=== PATIENT | female | born 1935 | race Caucasian/White ===

== ENCOUNTER 2021-01-23 05:27 | Day surgery (SDC) | payer BC, MEDICARE, OTHER ==
[2021-01-22 11:37] VITALS: BMI 31.4
[2021-01-23 07:34] LABS: INR 1.05 (0.83-1.09); PROTHROMBIN TIME (PATIENT) 12.9 SEC (9.7-13.0)
[2021-01-23 07:42] LABS: BASO % 1.2 % (0-2.0); EOS % 21.4 % (0-4.5); HEMATOCRIT 42.4 % (32.4-45.2); HEMOGLOBIN 13.6 GM/dL (10.7-15.3); LYMPH % 11.8 % (8-40); MCH 27.4 pg (25.7-33.7); MEAN CELL VOLUME 85.6 fl (80-96); MEAN PLT VOLUME 7.8 fl (7.5-11.1); MONO % 7.1 % (3.8-10.2); NEUT % 58.5 % (42.8-82.8); PLATELET COUNT 419 K/MM3 (134-434); RBC 4.95 M/mm3 (3.60-5.2); RDW 15.8 % (11.6-15.6); WHITE BLOOD COUNT 21.5 K/mm3 (4.0-10.0)
[2021-01-23 10:03] LABS: ANISOCYTOSIS 0; MACROCYTOSIS 0; PLATELET ESTIMATE INCREASED
[2021-01-23 12:27] LABS: BF WBC & OTHER NUCLEATED CELLS 1235 /mm3
[2021-01-23 12:55] VITALS: BP 122/52; PULSE 75; TEMP 97.8
[2021-01-23 13:46] LABS: BODY FLUID MACROPHAGES 48 %; BODYL FLD EOSINOPHIL 4 %
[2021-01-24 17:07] LABS: BODY FLUID ALBUMIN 2.7 g/dL (Not Estab.)
== END 2021-01-23 13:00 | disposition home or self-care (01) ==
LOC: JRADIR 05:27
PROVIDERS: ATTEND Internal Medicine Hematology & Oncology
PROC: 0W9B3ZZ Drainage of Left Pleural Cavity, Percutaneous Approach (ICD-10-PCS; principal; 2021-01-23)
DX: J90 Pleural effusion, not elsewhere classified (principal); C34.90 Malignant neoplasm of unspecified part of unspecified bronchus or lung
CPT/HCPCS: 32555; 36415; 71045-TC-FY; 76942; 82042; 82150; 82465; 82945; 83615; 83986; 84157; 84478; 85025; 85610; 87070; 87075; 87102; 87116; 87205; 87206; 87210

== ENCOUNTER 2021-02-05 08:03 | Inpatient (IN) | payer OTHER, BC, MEDICARE ==
[2021-02-05 09:52] LABS: BASO % 0.7 % (0-2.0); EOS % 18.1 % (0-4.5); HEMATOCRIT 41.4 % (32.4-45.2); HEMOGLOBIN 13.4 GM/dL (10.7-15.3); MCH 26.6 pg (25.7-33.7); MCHC 32.3 g/dl (32.0-36.0); MEAN CELL VOLUME 82.5 fl (80-96); MEAN PLT VOLUME 7.1 fl (7.5-11.1); MONO % 5.5 % (3.8-10.2); NEUT % 69.7 % (42.8-82.8); PLATELET COUNT 518 10^3/uL (134-434); RBC 5.02 M/mm3 (3.60-5.2); WHITE BLOOD COUNT 27.1 K/mm3 (4.0-10.0)
[2021-02-05 09:53] LABS: INR 1.1 (0.83-1.09); PROTHROMBIN TIME (PATIENT) 13.5 SEC (9.7-13.0)
[2021-02-05 09:56] LABS: ACTIVATED PTT 32.3 SECONDS (25.2-36.5)
[2021-02-05 10:04] LABS: CHLORIDE 106 mmol/L (98-107); SODIUM 141 mmol/L (136-145)
[2021-02-05 10:06] LABS: CALCIUM 10.6 mg/dL (8.5-10.1)
[2021-02-05 10:07] LABS: ALBUMIN 2.8 g/dl (3.4-5.0); ANION GAP 6 MMOL/L (8-16); BLOOD UREA NITROGEN 22.9 mg/dL (7-18); CO2 29 mmol/L (21-32); GLUCOSE,RANDOM 143 mg/dL (74-106)
[2021-02-05 10:10] LABS: CREATININE 0.8 mg/dL (0.55-1.3); SGOT/AST 13 U/L (15-37); SGPT/ALT < 6 U/L (13-61)
[2021-02-05 10:11] LABS: BILIRUBIN,TOTAL 0.4 mg/dL (0.2-1); TOT PROT 6.3 g/dl (6.4-8.2)
[2021-02-05 10:13] LABS: ALK PHOS 95 U/L (45-117)
[2021-02-05 10:34] LABS: ANISOCYTOSIS 0; HELMET CELLS 0; HOWELL-JOLLY BODIES 0; MACROCYTOSIS 0; OVALOCYTE 0; PLATELET ESTIMATE INCREASED; ROULEAU 0; SICKELED CELLS 0; TARGET CELLS 0; TEAR DROP CELLS 0; TOXIC GRANULATION 0
[2021-02-05] MEDS ORDERED: VANCOMYCIN 1 GM in D5W (PRE-DOCKED) 1,000 MG/250 ML IVPB ONE (10:57)
[2021-02-05] MEDS ORDERED: VANCOMYCIN 1 GRAM (PRE-DOCKED) 1,000 MG/250 ML BAG IVPB ONE (11:17)
[2021-02-05] MEDS ORDERED: ACETAMINOPHEN 1000 MG/100 ML VIAL (NON FORMULARY) IVPB ONE (17:22)
[2021-02-05] MEDS ORDERED: ACETAMINOPHEN 325 MG TABLET (FP) ONE (17:36)
[2021-02-05] MEDS ORDERED: ALBUTEROL SO4 2.5/IPRATROPIUM 0.5 INH SOL 3 ML VIAL.NEB. NEB SCH (18:00)
[2021-02-05] MEDS ORDERED: ACETAMINOPHEN 500 MG TABLET (FP) PO ONE (18:01)
[2021-02-05 21:59] LABS: BASO % 1.2 % (0-2.0); EOS % 19.6 % (0-4.5); HEMATOCRIT 40.1 % (32.4-45.2); HEMOGLOBIN 12.9 GM/dL (10.7-15.3); LYMPH % 7.2 % (8-40); MCH 26.4 pg (25.7-33.7); MCHC 32.1 g/dl (32.0-36.0); MEAN CELL VOLUME 82.2 fl (80-96); MEAN PLT VOLUME 7.3 fl (7.5-11.1); MONO % 5.1 % (3.8-10.2); NEUT % 66.9 % (42.8-82.8); PLATELET COUNT 497 10^3/uL (134-434); RBC 4.88 M/mm3 (3.60-5.2); RDW 16.3 % (11.6-15.6); WHITE BLOOD COUNT 24.9 K/mm3 (4.0-10.0)
[2021-02-05] MEDS: rOPINIRole HCL 0.5 MG TABLET PO SCH ×2 (22:15→22:39)
[2021-02-05 22:22] LABS: CALCIUM 9.8 mg/dL (8.5-10.1)
[2021-02-05 22:26] LABS: CREATININE 0.8 mg/dL (0.55-1.3)
[2021-02-05] MEDS: FLUTICASONE/SALMETEROL 100 MCG/50 MCG DISKUS IH SCH (22:38)
[2021-02-05] MEDS ORDERED: INSULIN (LEVEMIR) 100 UNITS/ML UNITS SQ ONE (23:04)
[2021-02-05] MEDS: INSULIN (LEVEMIR) 100 UNITS/ML UNITS SQ SCH (23:05)
[2021-02-05] MEDS ORDERED: ALBUTEROL SO4 2.5/IPRATROPIUM 0.5 INH SOL 3 ML VIAL.NEB. NEB ONE (23:08)
[2021-02-05] MEDS ORDERED: MONTELUKAST NA 10 MG TABLET ONE (23:08)
[2021-02-05] MEDS: MONTELUKAST NA 10 MG TABLET PO SCH (23:13)
[2021-02-05] MEDS: ALBUTEROL SO4 2.5/IPRATROPIUM 0.5 INH SOL 3 ML VIAL.NEB. NEB SCH (23:13)
[2021-02-05 23:30] LABS: ANISOCYTOSIS 0; MACROCYTOSIS 0; PLATELET ESTIMATE NORMAL
[2021-02-06 02:02] VITALS: BMI 31.1
[2021-02-06] MEDS: ACETAMINOPHEN 1000 MG/100 ML VIAL (NON FORMULARY) IVPB ONE ×2 (05:16→05:41)
[2021-02-06] MEDS: LEVOTHYROXINE NA 75 MCG TABLET (FP) PO SCH (05:59)
[2021-02-06] MEDS: INSULIN SLIDING SCALE (NOVOLOG) 1 VIAL SQ SCH ×2 (06:02→16:38)
[2021-02-06] MEDS: ALBUTEROL SO4 2.5/IPRATROPIUM 0.5 INH SOL 3 ML VIAL.NEB. NEB SCH ×4 (07:42→20:48)
[2021-02-06] MEDS ORDERED: PT OWN MED DRAWER 7, Y5N ONE ×4 (08:21→18:00)
[2021-02-06] MEDS: PANTOPRAZOLE 40 MG TABLET PO SCH (09:46)
[2021-02-06] MEDS: VALSARTAN 80 MG TABLET PO SCH (09:46)
[2021-02-06] MEDS: rOPINIRole HCL 0.5 MG TABLET PO SCH ×4 (09:46→23:07)
[2021-02-06] MEDS: FLUTICASONE/SALMETEROL 100 MCG/50 MCG DISKUS IH SCH ×2 (09:49→23:07)
[2021-02-06] MEDS ORDERED: metoPROLOL SUCCINATE 25 MG TAB.SR.24H (FP) PO SCH (10:00)
[2021-02-06] MEDS ORDERED: HYDROCHLOROTHIAZIDE 12.5 MG CAPSULE (FP) PO SCH (10:00)
[2021-02-06] MEDS: ACETAMINOPHEN 325 MG TABLET (FP) PO PRN ×2 (11:12→18:03)
[2021-02-06 15:16] LABS: BF WBC & OTHER NUCLEATED CELLS 727 /mm3
[2021-02-06 15:37] LABS: BODY FLUID MACROPHAGES 20 %; BODY FLUID MONOCYTE 5 %; BODYL FLD EOSINOPHIL 27 %
[2021-02-06] MEDS: MORPHINE SULFATE 2 MG/ML VIAL IVPUSH PRN (15:37)
[2021-02-06] MEDS ORDERED: INSULIN (NOVOLOG) ASPART 100 UNITS/ML 10ML VIAL ONE (20:28)
[2021-02-06] MEDS: INSULIN (LEVEMIR) 100 UNITS/ML UNITS SQ SCH (21:02)
[2021-02-06] MEDS: MONTELUKAST NA 10 MG TABLET PO SCH (21:04)
[2021-02-06] MEDS ORDERED: LORazepam 2 MG/ML SDV VIAL IVPUSH ONE (22:47)
[2021-02-07] MEDS: MORPHINE SULFATE 2 MG/ML VIAL IVPUSH PRN (05:40)
[2021-02-07] MEDS: INSULIN SLIDING SCALE (NOVOLOG) 1 VIAL SQ SCH ×2 (05:59→17:19)
[2021-02-07] MEDS: LEVOTHYROXINE NA 75 MCG TABLET (FP) PO SCH (05:59)
[2021-02-07] MEDS ORDERED: INSULIN (NOVOLOG) ASPART 100 UNITS/ML 10ML VIAL ONE ×2 (06:15→17:07)
[2021-02-07] MEDS: ALBUTEROL SO4 2.5/IPRATROPIUM 0.5 INH SOL 3 ML VIAL.NEB. NEB SCH ×4 (07:30→20:35)
[2021-02-07] MEDS: VALSARTAN 80 MG TABLET PO SCH (09:36)
[2021-02-07] MEDS: ACETAMINOPHEN 325 MG TABLET (FP) PO PRN ×3 (09:36→23:29)
[2021-02-07] MEDS: FLUTICASONE/SALMETEROL 100 MCG/50 MCG DISKUS IH SCH ×2 (09:36→21:19)
[2021-02-07] MEDS: rOPINIRole HCL 0.5 MG TABLET PO SCH ×4 (09:38→21:19)
[2021-02-07] MEDS: PANTOPRAZOLE 40 MG TABLET PO SCH (09:38)
[2021-02-07] MEDS: MONTELUKAST NA 10 MG TABLET PO SCH (21:18)
[2021-02-07] MEDS: INSULIN (LEVEMIR) 100 UNITS/ML UNITS SQ SCH (21:22)
[2021-02-08] MEDS: ACETAMINOPHEN 325 MG TABLET (FP) PO PRN ×3 (05:29→18:14)
[2021-02-08] MEDS: LEVOTHYROXINE NA 75 MCG TABLET (FP) PO SCH (05:59)
[2021-02-08] MEDS: INSULIN SLIDING SCALE (NOVOLOG) 1 VIAL SQ SCH ×2 (05:59→18:24)
[2021-02-08] MEDS: ALBUTEROL SO4 2.5/IPRATROPIUM 0.5 INH SOL 3 ML VIAL.NEB. NEB SCH ×4 (07:41→20:45)
[2021-02-08] MEDS ORDERED: INSULIN (NOVOLOG) ASPART 100 UNITS/ML 10ML VIAL ONE ×2 (07:45→21:34)
[2021-02-08] MEDS ORDERED: PT OWN MED DRAWER 7, Y5N ONE ×2 (10:36→21:06)
[2021-02-08] MEDS: rOPINIRole HCL 0.5 MG TABLET PO SCH ×4 (10:38→22:07)
[2021-02-08] MEDS: FLUTICASONE/SALMETEROL 100 MCG/50 MCG DISKUS IH SCH ×2 (10:38→22:08)
[2021-02-08] MEDS: VALSARTAN 80 MG TABLET PO SCH (10:38)
[2021-02-08] MEDS: PANTOPRAZOLE 40 MG TABLET PO SCH (10:38)
[2021-02-08 14:08] LABS: BODY FLUID ALBUMIN 2.2 g/dL (Not Estab.)
[2021-02-08] MEDS: ENOXAPARIN NA (PORCINE) 40 MG/0.4 ML DISP.SYRIN SQ SCH (18:12)
[2021-02-08] MEDS: MONTELUKAST NA 10 MG TABLET PO SCH (21:27)
[2021-02-08] MEDS: INSULIN (LEVEMIR) 100 UNITS/ML UNITS SQ SCH (21:38)
[2021-02-09] MEDS: ACETAMINOPHEN 325 MG TABLET (FP) PO PRN ×2 (06:13→12:05)
[2021-02-09] MEDS: INSULIN SLIDING SCALE (NOVOLOG) 1 VIAL SQ SCH ×2 (06:19→16:47)
[2021-02-09] MEDS: LEVOTHYROXINE NA 75 MCG TABLET (FP) PO SCH (06:39)
[2021-02-09 08:09] LABS: BASO % 0.7 % (0-2.0); EOS % 19.3 % (0-4.5); HEMATOCRIT 39.7 % (32.4-45.2); HEMOGLOBIN 12.5 GM/dL (10.7-15.3); LYMPH % 8.4 % (8-40); MCHC 31.5 g/dl (32.0-36.0); MEAN CELL VOLUME 82.4 fl (80-96); MEAN PLT VOLUME 8.1 fl (7.5-11.1); MONO % 8.9 % (3.8-10.2); NEUT % 62.7 % (42.8-82.8); PLATELET COUNT 447 10^3/uL (134-434); RBC 4.81 M/mm3 (3.60-5.2); RDW 16.5 % (11.6-15.6); WHITE BLOOD COUNT 18.9 K/mm3 (4.0-10.0)
[2021-02-09] MEDS: ALBUTEROL SO4 2.5/IPRATROPIUM 0.5 INH SOL 3 ML VIAL.NEB. NEB SCH ×4 (08:25→21:04)
[2021-02-09 08:28] LABS: CHLORIDE 107 mmol/L (98-107); SODIUM 142 mmol/L (136-145)
[2021-02-09 08:32] LABS: ANION GAP 7 MMOL/L (8-16); BLOOD UREA NITROGEN 24.9 mg/dL (7-18); CALCIUM 9.7 mg/dL (8.5-10.1); CO2 27 mmol/L (21-32)
[2021-02-09 08:33] LABS: GLUCOSE,RANDOM 130 mg/dL (74-106)
[2021-02-09 08:36] LABS: CREATININE 0.8 mg/dL (0.55-1.3); SGOT/AST 32 U/L (15-37); SGPT/ALT < 6 U/L (13-61)
[2021-02-09 08:37] LABS: BILIRUBIN,TOTAL 0.5 mg/dL (0.2-1); TOT PROT 5.3 g/dl (6.4-8.2)
[2021-02-09 08:47] LABS: ALBUMIN 1.9 g/dl (3.4-5.0); ALK PHOS 134 U/L (45-117)
[2021-02-09] MEDS ORDERED: PT OWN MED DRAWER 7, Y5N ONE (10:02)
[2021-02-09] MEDS: ENOXAPARIN NA (PORCINE) 40 MG/0.4 ML DISP.SYRIN SQ SCH (10:29)
[2021-02-09] MEDS: PANTOPRAZOLE 40 MG TABLET PO SCH (10:29)
[2021-02-09] MEDS: rOPINIRole HCL 0.5 MG TABLET PO SCH ×4 (10:29→21:52)
[2021-02-09] MEDS: VALSARTAN 80 MG TABLET PO SCH (10:29)
[2021-02-09] MEDS: FLUTICASONE/SALMETEROL 100 MCG/50 MCG DISKUS IH SCH ×2 (10:36→21:51)
[2021-02-09] MEDS: traMADol HCL 50 MG TABLET PO PRN ×2 (13:23→23:14)
[2021-02-09] MEDS: POLYETHYLENE GLYCOL 3350 119 GM BTL PO SCH (15:22)
[2021-02-09] MEDS: MONTELUKAST NA 10 MG TABLET PO SCH (21:51)
[2021-02-09] MEDS: INSULIN (LEVEMIR) 100 UNITS/ML UNITS SQ SCH (21:54)
[2021-02-10] MEDS: LEVOTHYROXINE NA 75 MCG TABLET (FP) PO SCH (06:06)
[2021-02-10] MEDS: INSULIN SLIDING SCALE (NOVOLOG) 1 VIAL SQ SCH ×2 (06:06→16:06)
[2021-02-10] MEDS: ALBUTEROL SO4 2.5/IPRATROPIUM 0.5 INH SOL 3 ML VIAL.NEB. NEB SCH ×3 (07:25→15:15)
[2021-02-10] MEDS ORDERED: PT OWN MED DRAWER 7, Y5N ONE (10:11)
[2021-02-10] MEDS: VALSARTAN 80 MG TABLET PO SCH (10:20)
[2021-02-10] MEDS: POLYETHYLENE GLYCOL 3350 119 GM BTL PO SCH (10:20)
[2021-02-10] MEDS: ENOXAPARIN NA (PORCINE) 40 MG/0.4 ML DISP.SYRIN SQ SCH (10:20)
[2021-02-10] MEDS: FLUTICASONE/SALMETEROL 100 MCG/50 MCG DISKUS IH SCH ×2 (10:20→21:30)
[2021-02-10] MEDS: PANTOPRAZOLE 40 MG TABLET PO SCH (10:20)
[2021-02-10] MEDS: rOPINIRole HCL 0.25 MG TABLET PO SCH ×4 (10:21→21:11)
[2021-02-10] MEDS: traMADol HCL 50 MG TABLET PO PRN (17:25)
[2021-02-10] MEDS: ACETAMINOPHEN 325 MG TABLET (FP) PO PRN (21:11)
[2021-02-10] MEDS: MONTELUKAST NA 10 MG TABLET PO SCH (21:11)
[2021-02-10] MEDS: INSULIN (LEVEMIR) 100 UNITS/ML UNITS SQ SCH (21:12)
[2021-02-11] MEDS: traMADol HCL 50 MG TABLET PO PRN ×2 (04:53→18:19)
[2021-02-11] MEDS: INSULIN SLIDING SCALE (NOVOLOG) 1 VIAL SQ SCH ×2 (06:04→17:20)
[2021-02-11] MEDS: LEVOTHYROXINE NA 75 MCG TABLET (FP) PO SCH (06:06)
[2021-02-11] MEDS ORDERED: PT OWN MED DRAWER 7, Y5N ONE ×4 (09:19→21:25)
[2021-02-11] MEDS: ACETAMINOPHEN 325 MG TABLET (FP) PO PRN ×2 (09:30→21:29)
[2021-02-11] MEDS: ENOXAPARIN NA (PORCINE) 40 MG/0.4 ML DISP.SYRIN SQ SCH (09:30)
[2021-02-11] MEDS: PANTOPRAZOLE 40 MG TABLET PO SCH (09:31)
[2021-02-11] MEDS: rOPINIRole HCL 0.25 MG TABLET PO SCH ×4 (09:31→21:28)
[2021-02-11] MEDS: VALSARTAN 80 MG TABLET PO SCH (09:31)
[2021-02-11] MEDS: FLUTICASONE/SALMETEROL 100 MCG/50 MCG DISKUS IH SCH ×2 (09:32→21:28)
[2021-02-11] MEDS: POLYETHYLENE GLYCOL 3350 119 GM BTL PO SCH (09:32)
[2021-02-11] MEDS: MONTELUKAST NA 10 MG TABLET PO SCH (21:28)
[2021-02-11] MEDS: INSULIN (LEVEMIR) 100 UNITS/ML UNITS SQ SCH (21:29)
[2021-02-12] MEDS: MELATONIN 5 MG TABLETS PO PRN ×2 (01:30→21:36)
[2021-02-12] MEDS: traMADol HCL 50 MG TABLET PO PRN ×2 (02:28→23:01)
[2021-02-12] MEDS: LEVOTHYROXINE NA 75 MCG TABLET (FP) PO SCH (06:03)
[2021-02-12] MEDS: INSULIN SLIDING SCALE (NOVOLOG) 1 VIAL SQ SCH ×2 (06:20→16:52)
[2021-02-12 07:34] LABS: BASO % 1.1 % (0-2.0); EOS % 22.7 % (0-4.5); HEMATOCRIT 39.2 % (32.4-45.2); HEMOGLOBIN 12.6 GM/dL (10.7-15.3); LYMPH % 11.6 % (8-40); MCH 26.3 pg (25.7-33.7); MCHC 32.1 g/dl (32.0-36.0); MEAN CELL VOLUME 81.9 fl (80-96); MEAN PLT VOLUME 7.3 fl (7.5-11.1); MONO % 7.2 % (3.8-10.2); NEUT % 57.4 % (42.8-82.8); PLATELET COUNT 494 10^3/uL (134-434); RBC 4.79 M/mm3 (3.60-5.2); RDW 16.2 % (11.6-15.6); WHITE BLOOD COUNT 18.9 K/mm3 (4.0-10.0)
[2021-02-12 08:20] LABS: CALCIUM 9.6 mg/dL (8.5-10.1)
[2021-02-12 08:21] LABS: ALBUMIN 1.9 g/dl (3.4-5.0); BILIRUBIN,TOTAL 0.4 mg/dL (0.2-1); CREATININE 0.7 mg/dL (0.55-1.3)
[2021-02-12 08:22] LABS: TOT PROT 5.4 g/dl (6.4-8.2)
[2021-02-12 09:17] LABS: ANISOCYTOSIS 0; MACROCYTOSIS 0; PLATELET ESTIMATE INCREASED
[2021-02-12] MEDS: PANTOPRAZOLE 40 MG TABLET PO SCH (09:46)
[2021-02-12] MEDS: VALSARTAN 80 MG TABLET PO SCH (09:46)
[2021-02-12] MEDS: ACETAMINOPHEN 325 MG TABLET (FP) PO PRN ×2 (09:46→18:17)
[2021-02-12] MEDS: ENOXAPARIN NA (PORCINE) 40 MG/0.4 ML DISP.SYRIN SQ SCH (09:47)
[2021-02-12] MEDS: FLUTICASONE/SALMETEROL 100 MCG/50 MCG DISKUS IH SCH ×2 (09:47→21:35)
[2021-02-12] MEDS: POLYETHYLENE GLYCOL 3350 119 GM BTL PO SCH (09:47)
[2021-02-12] MEDS: rOPINIRole HCL 0.25 MG TABLET PO SCH ×4 (09:47→21:35)
[2021-02-12] MEDS ORDERED: PT OWN MED DRAWER 7, Y5N ONE ×2 (14:37→17:59)
[2021-02-12] MEDS: MONTELUKAST NA 10 MG TABLET PO SCH (21:35)
[2021-02-12] MEDS: INSULIN (LEVEMIR) 100 UNITS/ML UNITS SQ SCH (21:35)
[2021-02-13] MEDS: ACETAMINOPHEN 325 MG TABLET (FP) PO PRN ×3 (01:26→21:38)
[2021-02-13] MEDS: LEVOTHYROXINE NA 75 MCG TABLET (FP) PO SCH (06:00)
[2021-02-13] MEDS: INSULIN SLIDING SCALE (NOVOLOG) 1 VIAL SQ SCH ×2 (06:40→17:14)
[2021-02-13] MEDS ORDERED: PT OWN MED DRAWER 7, Y5N ONE ×3 (09:35→16:57)
[2021-02-13] MEDS: rOPINIRole HCL 0.25 MG TABLET PO SCH ×3 (09:41→17:15)
[2021-02-13] MEDS: PANTOPRAZOLE 40 MG TABLET PO SCH (09:42)
[2021-02-13] MEDS: POLYETHYLENE GLYCOL 3350 119 GM BTL PO SCH (09:44)
[2021-02-13] MEDS: FLUTICASONE/SALMETEROL 100 MCG/50 MCG DISKUS IH SCH ×2 (10:05→21:41)
[2021-02-13] MEDS: VALSARTAN 80 MG TABLET PO SCH (11:57)
[2021-02-13] MEDS: traMADol HCL 50 MG TABLET PO PRN (12:12)
[2021-02-13] MEDS ORDERED: traMADol HCL 50 MG TABLET PO ONE (19:07)
[2021-02-13] MEDS: SENNOSIDES 8.6MG TABLET (FP) PO PRN (19:18)
[2021-02-13] MEDS: INSULIN (LEVEMIR) 100 UNITS/ML UNITS SQ SCH (21:36)
[2021-02-13] MEDS: MONTELUKAST NA 10 MG TABLET PO SCH (21:39)
[2021-02-13] MEDS: MELATONIN 5 MG TABLETS PO PRN (21:40)
[2021-02-13] MEDS: rOPINIRole HCL 0.5 MG TABLET PO SCH (22:01)
[2021-02-14] MEDS: LEVOTHYROXINE NA 75 MCG TABLET (FP) PO SCH (06:12)
[2021-02-14] MEDS: INSULIN SLIDING SCALE (NOVOLOG) 1 VIAL SQ SCH ×2 (06:13→18:20)
[2021-02-14] MEDS: traMADol HCL 50 MG TABLET PO PRN ×2 (09:44→19:55)
[2021-02-14] MEDS ORDERED: PT OWN MED DRAWER 7, Y5N ONE (10:12)
[2021-02-14] MEDS: VALSARTAN 80 MG TABLET PO SCH (10:25)
[2021-02-14] MEDS: POLYETHYLENE GLYCOL 3350 119 GM BTL PO SCH (10:25)
[2021-02-14] MEDS: rOPINIRole HCL 0.5 MG TABLET PO SCH ×4 (10:25→21:35)
[2021-02-14] MEDS: FLUTICASONE/SALMETEROL 100 MCG/50 MCG DISKUS IH SCH ×2 (10:25→21:34)
[2021-02-14] MEDS: PANTOPRAZOLE 40 MG TABLET PO SCH (10:25)
[2021-02-14] MEDS: INSULIN (LEVEMIR) 100 UNITS/ML UNITS SQ SCH (21:32)
[2021-02-14] MEDS: SENNOSIDES 8.6MG TABLET (FP) PO PRN (21:34)
[2021-02-14] MEDS: MONTELUKAST NA 10 MG TABLET PO SCH (21:35)
[2021-02-14] MEDS: MELATONIN 5 MG TABLETS PO PRN (21:35)
[2021-02-15] MEDS: LEVOTHYROXINE NA 75 MCG TABLET (FP) PO SCH (06:02)
[2021-02-15] MEDS: INSULIN SLIDING SCALE (NOVOLOG) 1 VIAL SQ SCH ×2 (06:03→17:18)
[2021-02-15] MEDS ORDERED: PT OWN MED DRAWER 7, Y5N ONE ×2 (11:01→21:30)
[2021-02-15] MEDS: traMADol HCL 50 MG TABLET PO PRN ×2 (11:08→18:51)
[2021-02-15] MEDS: rOPINIRole HCL 0.5 MG TABLET PO SCH ×4 (11:09→21:36)
[2021-02-15] MEDS: PANTOPRAZOLE 40 MG TABLET PO SCH (11:09)
[2021-02-15] MEDS: FLUTICASONE/SALMETEROL 100 MCG/50 MCG DISKUS IH SCH ×2 (11:10→21:37)
[2021-02-15] MEDS: VALSARTAN 80 MG TABLET PO SCH (11:16)
[2021-02-15] MEDS ORDERED: POLYETHYLENE GLYCOL (HEALTHYLAX) 3350 17 GM PACKET PO SCH (11:17)
[2021-02-15] MEDS: POLYETHYLENE GLYCOL 3350 119 GM BTL PO SCH (11:18)
[2021-02-15] MEDS: POLYETHYLENE GLYCOL (HEALTHYLAX) 3350 17 GM PACKET PO SCH (11:25)
[2021-02-15] MEDS ORDERED: LACTULOSE 20 GM/30 ML UDC (FOR ORAL USE ONLY) PO PRN (11:34)
[2021-02-15] MEDS: MONTELUKAST NA 10 MG TABLET PO SCH (21:36)
[2021-02-15] MEDS: ACETAMINOPHEN 325 MG TABLET (FP) PO PRN (21:36)
[2021-02-15] MEDS: INSULIN (LEVEMIR) 100 UNITS/ML UNITS SQ SCH (21:37)
[2021-02-15] MEDS: MELATONIN 5 MG TABLETS PO PRN (21:38)
[2021-02-16] MEDS: INSULIN SLIDING SCALE (NOVOLOG) 1 VIAL SQ SCH ×2 (06:01→17:18)
[2021-02-16] MEDS: LEVOTHYROXINE NA 75 MCG TABLET (FP) PO SCH (06:01)
[2021-02-16] MEDS: ACETAMINOPHEN 325 MG TABLET (FP) PO PRN (06:01)
[2021-02-16] MEDS: PANTOPRAZOLE 40 MG TABLET PO SCH (10:17)
[2021-02-16] MEDS: VALSARTAN 80 MG TABLET PO SCH (10:17)
[2021-02-16] MEDS: FLUTICASONE/SALMETEROL 100 MCG/50 MCG DISKUS IH SCH ×2 (10:19→22:12)
[2021-02-16] MEDS ORDERED: PT OWN MED DRAWER 7, Y5N ONE ×2 (10:20→21:16)
[2021-02-16] MEDS: rOPINIRole HCL 0.5 MG TABLET PO SCH ×4 (10:22→22:09)
[2021-02-16] MEDS ORDERED: traMADol HCL 50 MG TABLET PO PRN (10:35)
[2021-02-16] MEDS: POLYETHYLENE GLYCOL (HEALTHYLAX) 3350 17 GM PACKET PO SCH ×3 (17:59→22:10)
[2021-02-16] MEDS: MONTELUKAST NA 10 MG TABLET PO SCH (22:09)
[2021-02-16] MEDS: MELATONIN 5 MG TABLETS PO PRN (22:09)
[2021-02-16] MEDS: INSULIN (LEVEMIR) 100 UNITS/ML UNITS SQ SCH (22:10)
[2021-02-17] MEDS: INSULIN SLIDING SCALE (NOVOLOG) 1 VIAL SQ SCH ×2 (06:05→16:48)
[2021-02-17] MEDS: LEVOTHYROXINE NA 75 MCG TABLET (FP) PO SCH (06:06)
[2021-02-17] MEDS: VALSARTAN 80 MG TABLET PO SCH (10:40)
[2021-02-17] MEDS: FLUTICASONE/SALMETEROL 100 MCG/50 MCG DISKUS IH SCH ×2 (10:40→22:03)
[2021-02-17] MEDS: POLYETHYLENE GLYCOL (HEALTHYLAX) 3350 17 GM PACKET PO SCH ×2 (10:42→22:00)
[2021-02-17] MEDS: PANTOPRAZOLE 40 MG TABLET PO SCH (10:42)
[2021-02-17] MEDS: rOPINIRole HCL 0.5 MG TABLET PO SCH ×3 (10:43→22:01)
[2021-02-17] MEDS: oxyCODONE HCL 5 MG TABLET PO PRN ×2 (12:00→19:57)
[2021-02-17] MEDS: ACETAMINOPHEN 325 MG TABLET (FP) PO PRN (19:57)
[2021-02-17] MEDS ORDERED: PT OWN MED DRAWER 7, Y5N ONE (21:28)
[2021-02-17] MEDS: MONTELUKAST NA 10 MG TABLET PO SCH (22:01)
[2021-02-17] MEDS: INSULIN (LEVEMIR) 100 UNITS/ML UNITS SQ SCH (22:02)
[2021-02-18] MEDS: oxyCODONE HCL 5 MG TABLET PO PRN ×3 (05:54→21:19)
[2021-02-18] MEDS: ACETAMINOPHEN 325 MG TABLET (FP) PO PRN ×2 (05:55→15:13)
[2021-02-18] MEDS: LEVOTHYROXINE NA 75 MCG TABLET (FP) PO SCH (06:00)
[2021-02-18] MEDS: INSULIN SLIDING SCALE (NOVOLOG) 1 VIAL SQ SCH ×2 (06:00→16:10)
[2021-02-18] MEDS: rOPINIRole HCL 0.5 MG TABLET PO SCH ×4 (09:31→22:59)
[2021-02-18] MEDS: PANTOPRAZOLE 40 MG TABLET PO SCH (09:31)
[2021-02-18] MEDS: VALSARTAN 80 MG TABLET PO SCH (09:31)
[2021-02-18] MEDS: FLUTICASONE/SALMETEROL 100 MCG/50 MCG DISKUS IH SCH ×2 (09:34→21:41)
[2021-02-18] MEDS: POLYETHYLENE GLYCOL (HEALTHYLAX) 3350 17 GM PACKET PO SCH ×3 (11:39→21:24)
[2021-02-18 15:09] LABS: BASO % 0.5 % (0-2.0); EOS % 18.2 % (0-4.5); HEMATOCRIT 38.2 % (32.4-45.2); LYMPH % 7.3 % (8-40); MCH 25.7 pg (25.7-33.7); MCHC 31.4 g/dl (32.0-36.0); MEAN CELL VOLUME 81.9 fl (80-96); MEAN PLT VOLUME 7.4 fl (7.5-11.1); MONO % 5.4 % (3.8-10.2); NEUT % 68.6 % (42.8-82.8); PLATELET COUNT 484 10^3/uL (134-434); RBC 4.67 M/mm3 (3.60-5.2); RDW 16.7 % (11.6-15.6); WHITE BLOOD COUNT 24.5 K/mm3 (4.0-10.0)
[2021-02-18 15:23] LABS: CHLORIDE 103 mmol/L (98-107); SODIUM 141 mmol/L (136-145)
[2021-02-18 15:25] LABS: CALCIUM 10.5 mg/dL (8.5-10.1)
[2021-02-18 15:26] LABS: ANION GAP 7 MMOL/L (8-16); BLOOD UREA NITROGEN 20.2 mg/dL (7-18); CO2 31 mmol/L (21-32); GLUCOSE,RANDOM 162 mg/dL (74-106)
[2021-02-18 15:29] LABS: CREATININE 0.9 mg/dL (0.55-1.3); SGOT/AST 11 U/L (15-37); SGPT/ALT < 6 U/L (13-61)
[2021-02-18 15:30] LABS: BILIRUBIN,TOTAL 0.4 mg/dL (0.2-1)
[2021-02-18 15:32] LABS: ALBUMIN 2.4 g/dl (3.4-5.0); ALK PHOS 146 U/L (45-117)
[2021-02-18 18:14] LABS: ANISOCYTOSIS 0; MACROCYTOSIS 0; PLATELET ESTIMATE NORMAL
[2021-02-18] MEDS: MONTELUKAST NA 10 MG TABLET PO SCH (21:20)
[2021-02-18] MEDS: INSULIN (LEVEMIR) 100 UNITS/ML UNITS SQ SCH (22:22)
[2021-02-19] MEDS ORDERED: predniSONE 20 MG TABLET (UD) PO ONE (04:00)
[2021-02-19] MEDS: LEVOTHYROXINE NA 75 MCG TABLET (FP) PO SCH (06:07)
[2021-02-19] MEDS: INSULIN SLIDING SCALE (NOVOLOG) 1 VIAL SQ SCH ×2 (06:10→16:47)
[2021-02-19] MEDS ORDERED: PT OWN MED DRAWER 7, Y5N ONE ×6 (09:47→18:00)
[2021-02-19] MEDS: PANTOPRAZOLE 40 MG TABLET PO SCH (09:50)
[2021-02-19] MEDS: oxyCODONE HCL 5 MG TABLET PO PRN (09:51)
[2021-02-19] MEDS: VALSARTAN 80 MG TABLET PO SCH (09:51)
[2021-02-19] MEDS: rOPINIRole HCL 0.5 MG TABLET PO SCH ×5 (09:52→21:58)
[2021-02-19] MEDS: POLYETHYLENE GLYCOL (HEALTHYLAX) 3350 17 GM PACKET PO SCH ×2 (09:53→21:12)
[2021-02-19] MEDS: FLUTICASONE/SALMETEROL 100 MCG/50 MCG DISKUS IH SCH ×2 (09:53→21:13)
[2021-02-19] MEDS ORDERED: diphenhydrAMINE HCL 25 MG CAPSULE (FP) PO PRN (10:00)
[2021-02-19] MEDS ORDERED: predniSONE 20 MG TABLET (UD) PO SCH (10:00)
[2021-02-19] MEDS ORDERED: traMADol HCL 50 MG TABLET PO PRN (14:03)
[2021-02-19] MEDS: INSULIN (LEVEMIR) 100 UNITS/ML UNITS SQ SCH (21:09)
[2021-02-19] MEDS: MELATONIN 5 MG TABLETS PO PRN (21:13)
[2021-02-19] MEDS: MONTELUKAST NA 10 MG TABLET PO SCH (21:13)
[2021-02-19] MEDS: ACETAMINOPHEN 325 MG TABLET (FP) PO PRN (23:52)
[2021-02-20] MEDS ORDERED: traMADol HCL 50 MG TABLET PO ONE (01:48)
[2021-02-20] MEDS ORDERED: INSULIN (NOVOLOG) ASPART 100 UNITS/ML 10ML VIAL ONE (05:38)
[2021-02-20] MEDS: LEVOTHYROXINE NA 75 MCG TABLET (FP) PO SCH (06:14)
[2021-02-20] MEDS: ACETAMINOPHEN 325 MG TABLET (FP) PO PRN (06:14)
[2021-02-20] MEDS: INSULIN SLIDING SCALE (NOVOLOG) 1 VIAL SQ SCH ×2 (06:20→17:31)
[2021-02-20] MEDS: FLUTICASONE/SALMETEROL 100 MCG/50 MCG DISKUS IH SCH ×2 (09:23→22:00)
[2021-02-20] MEDS: VALSARTAN 80 MG TABLET PO SCH (09:24)
[2021-02-20] MEDS: PANTOPRAZOLE 40 MG TABLET PO SCH (09:24)
[2021-02-20] MEDS: POLYETHYLENE GLYCOL (HEALTHYLAX) 3350 17 GM PACKET PO SCH ×3 (09:24→23:26)
[2021-02-20] MEDS: rOPINIRole HCL 0.5 MG TABLET PO SCH ×4 (09:25→22:03)
[2021-02-20] MEDS ORDERED: diazePAM 5 MG TABLET PO SCH (12:42)
[2021-02-20] MEDS: MONTELUKAST NA 10 MG TABLET PO SCH (22:00)
[2021-02-20] MEDS: INSULIN (LEVEMIR) 100 UNITS/ML UNITS SQ SCH (22:13)
[2021-02-21] MEDS: oxyCODONE HCL 5 MG TABLET PO PRN ×2 (03:01→10:31)
[2021-02-21] MEDS: LEVOTHYROXINE NA 75 MCG TABLET (FP) PO SCH (06:31)
[2021-02-21] MEDS: INSULIN SLIDING SCALE (NOVOLOG) 1 VIAL SQ SCH ×2 (06:33→16:09)
[2021-02-21 07:23] LABS: BASO % 1.2 % (0-2.0); HEMATOCRIT 37.7 % (32.4-45.2); HEMOGLOBIN 11.7 GM/dL (10.7-15.3); LYMPH % 10.8 % (8-40); MCH 25.6 pg (25.7-33.7); MCHC 31.2 g/dl (32.0-36.0); MEAN CELL VOLUME 82.2 fl (80-96); MEAN PLT VOLUME 7.5 fl (7.5-11.1); MONO % 6.3 % (3.8-10.2); NEUT % 58.7 % (42.8-82.8); PLATELET COUNT 448 10^3/uL (134-434); RBC 4.58 M/mm3 (3.60-5.2); RDW 16.6 % (11.6-15.6); WHITE BLOOD COUNT 24.9 K/mm3 (4.0-10.0)
[2021-02-21 07:40] LABS: CHLORIDE 102 mmol/L (98-107); SODIUM 140 mmol/L (136-145)
[2021-02-21 07:43] LABS: ALBUMIN 2.2 g/dl (3.4-5.0); ANION GAP 4 MMOL/L (8-16); CALCIUM 10.3 mg/dL (8.5-10.1); CO2 35 mmol/L (21-32); GLUCOSE,RANDOM 88 mg/dL (74-106)
[2021-02-21 07:46] LABS: SGOT/AST 6 U/L (15-37); SGPT/ALT < 6 U/L (13-61)
[2021-02-21 07:47] LABS: CREATININE 0.7 mg/dL (0.55-1.3)
[2021-02-21 07:48] LABS: BILIRUBIN,TOTAL 0.7 mg/dL (0.2-1); TOT PROT 5.4 g/dl (6.4-8.2)
[2021-02-21 07:49] LABS: ALK PHOS 118 U/L (45-117)
[2021-02-21 09:19] LABS: ANISOCYTOSIS 2+; MACROCYTOSIS 0; PLATELET ESTIMATE NORMAL
[2021-02-21] MEDS: FLUTICASONE/SALMETEROL 100 MCG/50 MCG DISKUS IH SCH ×2 (09:24→21:05)
[2021-02-21] MEDS: PANTOPRAZOLE 40 MG TABLET PO SCH (09:24)
[2021-02-21] MEDS: VALSARTAN 80 MG TABLET PO SCH (09:24)
[2021-02-21] MEDS: POLYETHYLENE GLYCOL (HEALTHYLAX) 3350 17 GM PACKET PO SCH ×2 (09:25→21:05)
[2021-02-21] MEDS: rOPINIRole HCL 0.5 MG TABLET PO SCH ×4 (09:25→21:04)
[2021-02-21] MEDS: ASPIRIN 81 MG CHEWABLE TABLETS PO SCH (11:50)
[2021-02-21] MEDS ORDERED: INSULIN (NOVOLOG) ASPART 100 UNITS/ML 10ML VIAL ONE (16:47)
[2021-02-21] MEDS ORDERED: PT OWN MED DRAWER 7, Y5N ONE (20:38)
[2021-02-21] MEDS: MONTELUKAST NA 10 MG TABLET PO SCH (21:04)
[2021-02-21] MEDS: INSULIN (LEVEMIR) 100 UNITS/ML UNITS SQ SCH (21:04)
[2021-02-21] MEDS: MELATONIN 5 MG TABLETS PO PRN (21:04)
[2021-02-21] MEDS: ACETAMINOPHEN 325 MG TABLET (FP) PO PRN (21:05)
[2021-02-21] MEDS ORDERED: ATORVASTATIN CA 80 MG TABLET (FP) PO SCH (22:00)
[2021-02-22] MEDS: LEVOTHYROXINE NA 75 MCG TABLET (FP) PO SCH (06:19)
[2021-02-22] MEDS: INSULIN SLIDING SCALE (NOVOLOG) 1 VIAL SQ SCH ×2 (06:22→16:57)
[2021-02-22] MEDS ORDERED: PT OWN MED DRAWER 7, Y5N ONE (09:03)
[2021-02-22] MEDS: PANTOPRAZOLE 40 MG TABLET PO SCH (09:07)
[2021-02-22] MEDS: ASPIRIN 81 MG CHEWABLE TABLETS PO SCH (09:07)
[2021-02-22] MEDS: FLUTICASONE/SALMETEROL 100 MCG/50 MCG DISKUS IH SCH (09:07)
[2021-02-22] MEDS: POLYETHYLENE GLYCOL (HEALTHYLAX) 3350 17 GM PACKET PO SCH (09:07)
[2021-02-22] MEDS: VALSARTAN 80 MG TABLET PO SCH (09:07)
[2021-02-22] MEDS: rOPINIRole HCL 0.5 MG TABLET PO SCH ×3 (09:08→17:02)
[2021-02-22] MEDS: ACETAMINOPHEN 325 MG TABLET (FP) PO PRN ×2 (09:08→17:03)
[2021-02-22 12:59] VITALS: BP 122/56; PULSE 79; TEMP 97.6
[2021-02-22] MEDS: oxyCODONE HCL 5 MG TABLET PO PRN (13:18)
== END 2021-02-22 18:35 | DRG 180 ==
LOC: JER 08:03 → JERBED 10:39 → J7W 02-06 01:00
PROVIDERS: ADMIT Internal Medicine; ATTEND Internal Medicine
PROC: 0W9B30Z Drainage of Left Pleural Cavity with Drainage Device, Percutaneous Approach (ICD-10-PCS; 2021-02-06)
PROC: 0BBJ3ZX Excision of Left Lower Lung Lobe, Percutaneous Approach, Diagnostic (ICD-10-PCS; principal; 2021-02-13)
PROC: 0WPBX0Z Removal of Drainage Device from Left Pleural Cavity, External Approach (ICD-10-PCS; 2021-02-20)
DX: C34.90 Malignant neoplasm of unspecified part of unspecified bronchus or lung (principal); G93.41 Metabolic encephalopathy; I63.9 Cerebral infarction, unspecified; J90 Pleural effusion, not elsewhere classified; C79.51 Secondary malignant neoplasm of bone; I10 Essential (primary) hypertension; E11.9 Type 2 diabetes mellitus without complications; E78.5 Hyperlipidemia, unspecified; Z79.4 Long term (current) use of insulin; K59.00 Constipation, unspecified; E03.9 Hypothyroidism, unspecified; G20 Parkinson's disease; D72.10 Eosinophilia, unspecified; G62.9 Polyneuropathy, unspecified; G30.9 Alzheimer's disease, unspecified; F02.80 Dementia in other diseases classified elsewhere, unspecified severity, without behavioral disturbance, psychotic disturbance, mood disturbance, and anxiety
CPT/HCPCS: 32408; 32557; 36415; 70450-TC; 70553-TC; 71045-TC-FY; 71046-TC-FY; 71250-TC; 72131-TC; 72192-TC; 73502-TC-LT-FY; 73700-TC-RT; 76098-TC-FY; 76942-TC; 80048; 80053; 82042; 82150; 82465; 82607; 82945; 82962; 83036; 83615; 83986; 84157; 84443; 84478; 85025; 85610; 85730; 86682; 86850; 86900; 86901; 87040; 87070; 87075; 87102; 87116; 87177; 87205; 87206; 87209; 87210; 87899; 88108; 88305-TC; 93005; 93010; 94640; 97116-GP; 97161-GP; 99285-25; A9579; C1729; C1769; C9803; J0131; U0003; U0005

== ENCOUNTER 2021-03-15 20:40 | Inpatient (IN) | payer OTHER, BC ==
[2021-03-16 00:36] LABS: BASO % 0.4 % (0-2.0); EOS % 27.9 % (0-4.5); HEMOGLOBIN 13.6 GM/dL (10.7-15.3); LYMPH % 5.5 % (8-40); MCH 25.8 pg (25.7-33.7); MCHC 31.5 g/dl (32.0-36.0); MEAN CELL VOLUME 81.9 fl (80-96); MEAN PLT VOLUME 7.4 fl (7.5-11.1); MONO % 4.3 % (3.8-10.2); NEUT % 61.9 % (42.8-82.8); PLATELET COUNT 406 10^3/uL (134-434); RBC 5.25 M/mm3 (3.60-5.2); RDW 18.6 % (11.6-15.6)
[2021-03-16 00:40] LABS: WHITE BLOOD COUNT 39.9 K/mm3 (4.0-10.0)
[2021-03-16 00:46] LABS: INR 1.1 (0.83-1.09); PROTHROMBIN TIME (PATIENT) 13.3 SEC (9.7-13.0)
[2021-03-16 00:49] LABS: ACTIVATED PTT 29.5 SECONDS (25.2-36.5)
[2021-03-16 00:54] LABS: CHLORIDE 104 mmol/L (98-107); SODIUM 140 mmol/L (136-145)
[2021-03-16 00:56] LABS: ALBUMIN 2.6 g/dl (3.4-5.0); ANION GAP 8 MMOL/L (8-16); BLOOD UREA NITROGEN 24.5 mg/dL (7-18); CALCIUM 12.2 mg/dL (8.5-10.1); CO2 28 mmol/L (21-32)
[2021-03-16 00:57] LABS: GLUCOSE,RANDOM 100 mg/dL (74-106)
[2021-03-16 00:59] LABS: SGOT/AST 24 U/L (15-37); SGPT/ALT < 6 U/L (13-61)
[2021-03-16 01:00] LABS: CREATININE 0.8 mg/dL (0.55-1.3)
[2021-03-16 01:01] LABS: BILIRUBIN,TOTAL 0.4 mg/dL (0.2-1); TOT PROT 6.9 g/dl (6.4-8.2)
[2021-03-16 01:02] LABS: ALK PHOS 108 U/L (45-117)
[2021-03-16 02:02] LABS: EPI CELLS 14 /uL (0-25.1); HYALINE CASTS 2 /uL (0-3.1); URINE APPEARANCE CLEAR; URINE BACTERIA 14 /uL (0-1359); URINE BILIRUBIN NEGATIVE (NEGATIVE); URINE COLOR YELLOW; URINE GLUCOSE (UA) NEGATIVE (NEGATIVE); URINE KETONE TRACE (NEGATIVE); URINE LEUK ESTERASE 2+ (NEGATIVE); URINE NITRITE NEGATIVE (NEGATIVE); URINE PROTEIN NEGATIVE (NEGATIVE); URINE RBC 11 /uL (0-23.9); URINE UROBILINOGEN 0.2 mg/dL (0.2-1.0); URINE WBC 112 /uL (0-25.8)
[2021-03-16] MEDS ORDERED: SODIUM CHLORIDE 0.9% 500 ML INFUS.BAG IV ONE (03:47)
[2021-03-16] MEDS ORDERED: LACTULOSE 20 GM/30 ML UDC (FOR ORAL USE ONLY) PO PRN (06:25)
[2021-03-16] MEDS: INSULIN SLIDING SCALE (NOVOLOG) 1 VIAL SQ SCH ×4 (06:31→22:58)
[2021-03-16] MEDS ORDERED: LEVOTHYROXINE NA 25 MCG TABLET (FP) ONE (07:20)
[2021-03-16] MEDS ORDERED: CARBIDOPA/LEVODOPA 25/100 TABLET (FP) ONE (07:20)
[2021-03-16] MEDS ORDERED: ALBUTEROL SO4 2.5/IPRATROPIUM 0.5 INH SOL 3 ML VIAL.NEB. NEB ONE (07:20)
[2021-03-16] MEDS: LEVOTHYROXINE NA 75 MCG TABLET (FP) PO SCH (07:30)
[2021-03-16] MEDS ORDERED: oxyCODONE HCL 5 MG TABLET ONE (07:33)
[2021-03-16] MEDS ORDERED: ACETAMINOPHEN 325 MG TABLET (FP) ONE (07:33)
[2021-03-16] MEDS: oxyCODONE HCL 5 MG TABLET PO PRN (07:39)
[2021-03-16] MEDS: ALBUTEROL SO4 2.5/IPRATROPIUM 0.5 INH SOL 3 ML VIAL.NEB. NEB SCH ×2 (07:40→20:05)
[2021-03-16] MEDS ORDERED: SODIUM CHLORIDE 1,000 ML IV SCH (08:30)
[2021-03-16] MEDS ORDERED: POLYETHYLENE GLYCOL (HEALTHYLAX) 3350 17 GM PACKET ONE (09:03)
[2021-03-16] MEDS ORDERED: VALSARTAN 80 MG TABLET ONE (09:03)
[2021-03-16] MEDS ORDERED: PANTOPRAZOLE 40 MG TABLET ONE (09:03)
[2021-03-16] MEDS ORDERED: ASPIRIN 81 MG CHEWABLE TABLETS ONE (09:03)
[2021-03-16] MEDS ORDERED: metoPROLOL SUCCINATE 25 MG TAB.SR.24H (FP) ONE (09:03)
[2021-03-16] MEDS ORDERED: ENOXAPARIN NA (PORCINE) 40 MG/0.4 ML DISP.SYRIN SQ ONE (09:04)
[2021-03-16] MEDS ORDERED: FERROUS SO4 325 MG TABLET (FP) ONE (09:04)
[2021-03-16] MEDS: ENOXAPARIN NA (PORCINE) 40 MG/0.4 ML DISP.SYRIN SQ SCH (09:28)
[2021-03-16] MEDS: metoPROLOL SUCCINATE 25 MG TAB.SR.24H (FP) PO SCH (09:28)
[2021-03-16] MEDS: VALSARTAN 80 MG TABLET PO SCH (09:28)
[2021-03-16] MEDS: PANTOPRAZOLE 40 MG TABLET PO SCH (09:28)
[2021-03-16] MEDS: FERROUS SO4 325 MG TABLET (FP) PO SCH (09:28)
[2021-03-16] MEDS: MULTIVITAMINS THER W-MINERALS COMBO TABLET (FP) PO SCH (09:28)
[2021-03-16] MEDS: HYDROCHLOROTHIAZIDE 12.5 MG CAPSULE (FP) PO SCH (09:28)
[2021-03-16] MEDS: ASPIRIN 81 MG CHEWABLE TABLETS PO SCH (09:28)
[2021-03-16] MEDS: rOPINIRole HCL 0.5 MG TABLET PO SCH ×4 (09:28→22:59)
[2021-03-16] MEDS: FLUTICASONE/SALMETEROL 100 MCG/50 MCG DISKUS IH SCH ×2 (09:30→22:59)
[2021-03-16] MEDS ORDERED: HYDROCHLOROTHIAZIDE PO SCH (10:00)
[2021-03-16] MEDS ORDERED: POLYETHYLENE GLYCOL (HEALTHYLAX) 3350 17 GM PACKET PO SCH (10:00)
[2021-03-16] MEDS ORDERED: VALSARTAN PO SCH (10:00)
[2021-03-16] MEDS ORDERED: DEXTROSE 5%-WATER - 50 ML IVPB ONE ×2 (12:36→17:07)
[2021-03-16] MEDS ORDERED: PIPERACILLIN/TAZOBACTAM 3.375 GM VIAL IVPB ONE ×2 (12:36→17:06)
[2021-03-16] MEDS: PIPERACILLIN/TAZOB 3.375 GM 3.375 GM in DEXTROSE 5%-WATER - 50 ML IVPB SCH ×2 (12:54→17:33)
[2021-03-16] MEDS ORDERED: PT OWN MED DRAWER 7, Y5N ONE ×2 (13:50→17:39)
[2021-03-16] MEDS: VANCOMYCIN 1 GRAM (PRE-DOCKED) 1,000 MG/250 ML BAG IVPB SCH (13:54)
[2021-03-16] MEDS: SODIUM CHLORIDE 1,000 ML IV SCH (13:55)
[2021-03-16 14:46] VITALS: BMI 27.6
[2021-03-16] MEDS: MONTELUKAST NA 10 MG TABLET PO SCH (22:58)
[2021-03-16] MEDS: POLYETHYLENE GLYCOL (HEALTHYLAX) 3350 17 GM PACKET PO SCH (22:59)
[2021-03-16] MEDS: ACETAMINOPHEN 325 MG TABLET (FP) PO PRN (23:03)
[2021-03-16] MEDS: MELATONIN 5 MG TABLETS PO PRN (23:03)
[2021-03-17] MEDS ORDERED: PIPERACILLIN/TAZOBACTAM 3.375 GM VIAL IVPB ONE ×2 (04:11→08:30)
[2021-03-17] MEDS ORDERED: DEXTROSE 5%-WATER - 50 ML IVPB ONE ×2 (04:12→08:30)
[2021-03-17] MEDS: PIPERACILLIN/TAZOB 3.375 GM 3.375 GM in DEXTROSE 5%-WATER - 50 ML IVPB SCH ×2 (04:15→10:47)
[2021-03-17] MEDS ORDERED: ACETAMINOPHEN 1000 MG/100 ML VIAL (NON FORMULARY) IVPB ONE (04:44)
[2021-03-17] MEDS: INSULIN SLIDING SCALE (NOVOLOG) 1 VIAL SQ SCH ×4 (06:04→22:03)
[2021-03-17] MEDS: LEVOTHYROXINE NA 75 MCG TABLET (FP) PO SCH (06:05)
[2021-03-17 07:27] LABS: BASO % 0.9 % (0-2.0); CHLORIDE 106 mmol/L (98-107); EOS % 32.1 % (0-4.5); HEMATOCRIT 36.1 % (32.4-45.2); HEMOGLOBIN 11.6 GM/dL (10.7-15.3); LYMPH % 3.7 % (8-40); MCH 26.5 pg (25.7-33.7); MCHC 32.2 g/dl (32.0-36.0); MEAN CELL VOLUME 82.4 fl (80-96); MEAN PLT VOLUME 7.8 fl (7.5-11.1); MONO % 3.6 % (3.8-10.2); NEUT % 59.7 % (42.8-82.8); PLATELET COUNT 342 10^3/uL (134-434); RBC 4.38 M/mm3 (3.60-5.2); RDW 18.5 % (11.6-15.6); SODIUM 141 mmol/L (136-145)
[2021-03-17 07:34] LABS: WHITE BLOOD COUNT 31.3 K/mm3 (4.0-10.0)
[2021-03-17 07:36] LABS: CALCIUM 11.2 mg/dL (8.5-10.1)
[2021-03-17 07:37] LABS: ANION GAP 8 MMOL/L (8-16); CO2 27 mmol/L (21-32); GLUCOSE,RANDOM 99 mg/dL (74-106)
[2021-03-17 07:40] LABS: CREATININE 0.7 mg/dL (0.55-1.3); SGOT/AST 13 U/L (15-37); SGPT/ALT < 6 U/L (13-61)
[2021-03-17 07:41] LABS: BILIRUBIN,TOTAL 0.5 mg/dL (0.2-1); TOT PROT 5.2 g/dl (6.4-8.2)
[2021-03-17] MEDS: ALBUTEROL SO4 2.5/IPRATROPIUM 0.5 INH SOL 3 ML VIAL.NEB. NEB SCH ×5 (07:41→20:12)
[2021-03-17 07:43] LABS: ALK PHOS 85 U/L (45-117)
[2021-03-17 07:52] LABS: ALBUMIN 1.9 g/dl (3.4-5.0)
[2021-03-17 09:27] LABS: ANISOCYTOSIS 0; HELMET CELLS 0; HOWELL-JOLLY BODIES 0; MACROCYTOSIS 0; OVALOCYTE 0; PLATELET ESTIMATE NORMAL; ROULEAU 0; SICKELED CELLS 0; TARGET CELLS 0; TEAR DROP CELLS 0; TOXIC GRANULATION 0
[2021-03-17] MEDS: VALSARTAN 80 MG TABLET PO SCH (10:00)
[2021-03-17] MEDS: PANTOPRAZOLE 40 MG TABLET PO SCH (10:00)
[2021-03-17] MEDS ORDERED: POLYETHYLENE GLYCOL (HEALTHYLAX) 3350 17 GM PACKET PO SCH (10:00)
[2021-03-17] MEDS: HYDROCHLOROTHIAZIDE 12.5 MG CAPSULE (FP) PO SCH (10:00)
[2021-03-17] MEDS: ASPIRIN 81 MG CHEWABLE TABLETS PO SCH (10:00)
[2021-03-17] MEDS: metoPROLOL SUCCINATE 25 MG TAB.SR.24H (FP) PO SCH (10:00)
[2021-03-17] MEDS: FERROUS SO4 325 MG TABLET (FP) PO SCH (10:00)
[2021-03-17] MEDS: MULTIVITAMINS THER W-MINERALS COMBO TABLET (FP) PO SCH (10:00)
[2021-03-17] MEDS ORDERED: LORazepam 2 MG/ML SDV VIAL IVPUSH PRN (11:07)
[2021-03-17] MEDS: FLUTICASONE/SALMETEROL 100 MCG/50 MCG DISKUS IH SCH ×2 (11:37→21:51)
[2021-03-17] MEDS: rOPINIRole HCL 0.5 MG TABLET PO SCH ×4 (11:37→21:52)
[2021-03-17] MEDS: POLYETHYLENE GLYCOL (HEALTHYLAX) 3350 17 GM PACKET PO SCH ×2 (11:38→21:53)
[2021-03-17] MEDS: ENOXAPARIN NA (PORCINE) 40 MG/0.4 ML DISP.SYRIN SQ SCH (12:07)
[2021-03-17] MEDS: SODIUM CHLORIDE 1,000 ML IV SCH ×3 (12:49→20:59)
[2021-03-17] MEDS: VANCOMYCIN 1 GRAM (PRE-DOCKED) 1,000 MG/250 ML BAG IVPB SCH (13:33)
[2021-03-17] MEDS: oxyCODONE HCL 5 MG TABLET PO PRN (15:52)
[2021-03-17] MEDS ORDERED: ACETAMINOPHEN 1000 MG/100 ML VIAL (NON FORMULARY) IVPB PRN (16:31)
[2021-03-17] MEDS ORDERED: INSULIN (NOVOLOG) ASPART 100 UNITS/ML 10ML VIAL ONE ×2 (17:29→18:02)
[2021-03-17] MEDS ORDERED: PT OWN MED DRAWER 7, Y5N ONE ×2 (18:03→21:44)
[2021-03-17] MEDS: MONTELUKAST NA 10 MG TABLET PO SCH (21:52)
[2021-03-18] MEDS: SODIUM CHLORIDE 1,000 ML IV SCH ×3 (02:15→12:35)
[2021-03-18] MEDS: LEVOTHYROXINE NA 75 MCG TABLET (FP) PO SCH (06:01)
[2021-03-18] MEDS: INSULIN SLIDING SCALE (NOVOLOG) 1 VIAL SQ SCH ×4 (06:01→21:02)
[2021-03-18] MEDS: ALBUTEROL SO4 2.5/IPRATROPIUM 0.5 INH SOL 3 ML VIAL.NEB. NEB SCH ×4 (07:26→20:37)
[2021-03-18] MEDS ORDERED: PANTOPRAZOLE SODIUM 40 MG VIAL IVPUSH SCH (10:00)
[2021-03-18] MEDS: MULTIVITAMINS THER W-MINERALS COMBO TABLET (FP) PO SCH (10:29)
[2021-03-18] MEDS: POLYETHYLENE GLYCOL (HEALTHYLAX) 3350 17 GM PACKET PO SCH ×2 (10:29→21:03)
[2021-03-18] MEDS: ASPIRIN 81 MG CHEWABLE TABLETS PO SCH (10:29)
[2021-03-18] MEDS: metoPROLOL SUCCINATE 25 MG TAB.SR.24H (FP) PO SCH (10:29)
[2021-03-18] MEDS: rOPINIRole HCL 0.5 MG TABLET PO SCH ×4 (10:29→21:02)
[2021-03-18] MEDS: ENOXAPARIN NA (PORCINE) 40 MG/0.4 ML DISP.SYRIN SQ SCH (10:29)
[2021-03-18] MEDS: VALSARTAN 80 MG TABLET PO SCH (10:29)
[2021-03-18] MEDS: FLUTICASONE/SALMETEROL 100 MCG/50 MCG DISKUS IH SCH ×2 (10:30→21:03)
[2021-03-18 13:29] LABS: BASO % 0.7 % (0-2.0); EOS % 30.1 % (0-4.5); HEMATOCRIT 32.9 % (32.4-45.2); HEMOGLOBIN 10.5 GM/dL (10.7-15.3); LYMPH % 5.5 % (8-40); MCHC 31.9 g/dl (32.0-36.0); MEAN CELL VOLUME 81.6 fl (80-96); MEAN PLT VOLUME 7.5 fl (7.5-11.1); NEUT % 58.7 % (42.8-82.8); PLATELET COUNT 343 10^3/uL (134-434); RBC 4.03 M/mm3 (3.60-5.2); RDW 18.6 % (11.6-15.6)
[2021-03-18] MEDS ORDERED: PT OWN MED DRAWER 7, Y5N ONE ×3 (13:38→20:05)
[2021-03-18 13:45] LABS: WHITE BLOOD COUNT 30.4 K/mm3 (4.0-10.0)
[2021-03-18 13:53] LABS: CHLORIDE 112 mmol/L (98-107); SODIUM 143 mmol/L (136-145)
[2021-03-18 13:54] LABS: ALBUMIN 1.6 g/dl (3.4-5.0)
[2021-03-18 13:55] LABS: ANION GAP 7 MMOL/L (8-16); BLOOD UREA NITROGEN 13.8 mg/dL (7-18); CALCIUM 10.1 mg/dL (8.5-10.1); CO2 23 mmol/L (21-32); GLUCOSE,RANDOM 135 mg/dL (74-106)
[2021-03-18 13:58] LABS: SGOT/AST 9 U/L (15-37); SGPT/ALT < 6 U/L (13-61)
[2021-03-18 13:59] LABS: BILIRUBIN,TOTAL 0.3 mg/dL (0.2-1); CREATININE 0.5 mg/dL (0.55-1.3)
[2021-03-18 14:00] LABS: TOT PROT 4.6 g/dl (6.4-8.2)
[2021-03-18 14:01] LABS: ALK PHOS 71 U/L (45-117)
[2021-03-18 14:53] LABS: ANISOCYTOSIS 1+; MACROCYTOSIS 0; PLATELET ESTIMATE NORMAL
[2021-03-18] MEDS: POTASSIUM CHLORIDE 10 MEQ in SODIUM CHLORIDE 0.45% 1,000 ML IVPB SCH ×2 (15:53→23:52)
[2021-03-18] MEDS: ACETAMINOPHEN 325 MG TABLET (FP) PO PRN (20:13)
[2021-03-18] MEDS: ALPRAZolam 0.25 MG TABLET PO PRN (20:13)
[2021-03-18] MEDS: MELATONIN 5 MG TABLETS PO PRN (20:56)
[2021-03-18] MEDS: MONTELUKAST NA 10 MG TABLET PO SCH (21:02)
[2021-03-19] MEDS ORDERED: MORPHINE SULFATE 2 MG/ML VIAL IVPUSH PRN ×2 (00:05→11:36)
[2021-03-19] MEDS: LEVOTHYROXINE NA 75 MCG TABLET (FP) PO SCH (06:04)
[2021-03-19] MEDS: INSULIN SLIDING SCALE (NOVOLOG) 1 VIAL SQ SCH ×4 (06:40→21:38)
[2021-03-19 07:30] LABS: BASO % 1.3 % (0-2.0); EOS % 30.6 % (0-4.5); HEMATOCRIT 33.5 % (32.4-45.2); HEMOGLOBIN 10.6 GM/dL (10.7-15.3); LYMPH % 4.3 % (8-40); MCH 26.2 pg (25.7-33.7); MCHC 31.8 g/dl (32.0-36.0); MEAN CELL VOLUME 82.3 fl (80-96); MEAN PLT VOLUME 7.8 fl (7.5-11.1); MONO % 5.7 % (3.8-10.2); NEUT % 58.1 % (42.8-82.8); PLATELET COUNT 363 10^3/uL (134-434); RBC 4.07 M/mm3 (3.60-5.2); RDW 18.6 % (11.6-15.6)
[2021-03-19 07:40] LABS: WHITE BLOOD COUNT 34.9 K/mm3 (4.0-10.0)
[2021-03-19 07:54] LABS: CHLORIDE 110 mmol/L (98-107); SODIUM 141 mmol/L (136-145)
[2021-03-19 08:02] LABS: ALBUMIN 1.7 g/dl (3.4-5.0)
[2021-03-19 08:03] LABS: ANION GAP 9 MMOL/L (8-16); BLOOD UREA NITROGEN 10.9 mg/dL (7-18); CALCIUM 10.1 mg/dL (8.5-10.1); CO2 22 mmol/L (21-32)
[2021-03-19 08:04] LABS: GLUCOSE,RANDOM 121 mg/dL (74-106)
[2021-03-19 08:06] LABS: SGPT/ALT < 6 U/L (13-61)
[2021-03-19 08:07] LABS: CREATININE 0.4 mg/dL (0.55-1.3); SGOT/AST 10 U/L (15-37)
[2021-03-19 08:08] LABS: BILIRUBIN,TOTAL 0.6 mg/dL (0.2-1); TOT PROT 4.7 g/dl (6.4-8.2)
[2021-03-19 08:09] LABS: ALK PHOS 77 U/L (45-117)
[2021-03-19] MEDS: ALBUTEROL SO4 2.5/IPRATROPIUM 0.5 INH SOL 3 ML VIAL.NEB. NEB SCH ×4 (08:20→19:40)
[2021-03-19 08:52] LABS: ANISOCYTOSIS 1+; MACROCYTOSIS 1+; PLATELET ESTIMATE NORMAL
[2021-03-19] MEDS: POTASSIUM CHLORIDE 10 MEQ in SODIUM CHLORIDE 0.45% 1,000 ML IVPB SCH ×3 (10:23→21:33)
[2021-03-19] MEDS: FLUTICASONE/SALMETEROL 100 MCG/50 MCG DISKUS IH SCH ×2 (10:24→21:34)
[2021-03-19] MEDS: POLYETHYLENE GLYCOL (HEALTHYLAX) 3350 17 GM PACKET PO SCH ×2 (10:24→21:34)
[2021-03-19] MEDS: ENOXAPARIN NA (PORCINE) 40 MG/0.4 ML DISP.SYRIN SQ SCH (10:24)
[2021-03-19] MEDS: ASPIRIN 81 MG CHEWABLE TABLETS PO SCH (10:25)
[2021-03-19] MEDS: metoPROLOL SUCCINATE 25 MG TAB.SR.24H (FP) PO SCH (10:25)
[2021-03-19] MEDS: ACETAMINOPHEN 325 MG TABLET (FP) PO PRN (10:25)
[2021-03-19] MEDS: MULTIVITAMINS THER W-MINERALS COMBO TABLET (FP) PO SCH (10:25)
[2021-03-19] MEDS: PANTOPRAZOLE 40 MG TABLET PO SCH (10:25)
[2021-03-19] MEDS: rOPINIRole HCL 0.5 MG TABLET PO SCH ×4 (10:25→21:39)
[2021-03-19] MEDS: VALSARTAN 80 MG TABLET PO SCH (10:25)
[2021-03-19] MEDS ORDERED: PT OWN MED DRAWER 7, Y5N ONE ×2 (13:33→18:43)
[2021-03-19] MEDS ORDERED: INSULIN (NOVOLOG) ASPART 100 UNITS/ML 10ML VIAL ONE (16:58)
[2021-03-19] MEDS: MONTELUKAST NA 10 MG TABLET PO SCH (21:39)
[2021-03-20] MEDS: POTASSIUM CHLORIDE 10 MEQ in SODIUM CHLORIDE 0.45% 1,000 ML IVPB SCH ×3 (06:14→21:46)
[2021-03-20] MEDS: INSULIN SLIDING SCALE (NOVOLOG) 1 VIAL SQ SCH ×4 (06:22→21:43)
[2021-03-20] MEDS: LEVOTHYROXINE NA 75 MCG TABLET (FP) PO SCH (06:56)
[2021-03-20] MEDS: ALBUTEROL SO4 2.5/IPRATROPIUM 0.5 INH SOL 3 ML VIAL.NEB. NEB SCH ×4 (07:46→20:21)
[2021-03-20] MEDS: ENOXAPARIN NA (PORCINE) 40 MG/0.4 ML DISP.SYRIN SQ SCH (10:28)
[2021-03-20] MEDS: POLYETHYLENE GLYCOL (HEALTHYLAX) 3350 17 GM PACKET PO SCH ×2 (10:28→21:28)
[2021-03-20] MEDS: VALSARTAN 80 MG TABLET PO SCH (10:28)
[2021-03-20] MEDS: MULTIVITAMINS THER W-MINERALS COMBO TABLET (FP) PO SCH (10:28)
[2021-03-20] MEDS: ASPIRIN 81 MG CHEWABLE TABLETS PO SCH (10:29)
[2021-03-20] MEDS: rOPINIRole HCL 0.5 MG TABLET PO SCH ×4 (10:29→21:29)
[2021-03-20] MEDS: FLUTICASONE/SALMETEROL 100 MCG/50 MCG DISKUS IH SCH ×2 (10:29→21:30)
[2021-03-20] MEDS: metoPROLOL SUCCINATE 25 MG TAB.SR.24H (FP) PO SCH (10:29)
[2021-03-20] MEDS: PANTOPRAZOLE 40 MG TABLET PO SCH (10:29)
[2021-03-20] MEDS ORDERED: PT OWN MED DRAWER 7, Y5N ONE (14:17)
[2021-03-20] MEDS: ALPRAZolam 0.25 MG TABLET PO PRN (15:14)
[2021-03-20] MEDS: ACETAMINOPHEN 325 MG TABLET (FP) PO PRN (21:28)
[2021-03-20] MEDS: MELATONIN 5 MG TABLETS PO PRN (21:29)
[2021-03-20] MEDS: MONTELUKAST NA 10 MG TABLET PO SCH (21:30)
[2021-03-21] MEDS: POTASSIUM CHLORIDE 10 MEQ in SODIUM CHLORIDE 0.45% 1,000 ML IVPB SCH ×3 (01:56→14:28)
[2021-03-21] MEDS: ALPRAZolam 0.25 MG TABLET PO PRN (03:34)
[2021-03-21] MEDS: LEVOTHYROXINE NA 75 MCG TABLET (FP) PO SCH (06:23)
[2021-03-21] MEDS: INSULIN SLIDING SCALE (NOVOLOG) 1 VIAL SQ SCH ×3 (06:28→17:05)
[2021-03-21] MEDS: ALBUTEROL SO4 2.5/IPRATROPIUM 0.5 INH SOL 3 ML VIAL.NEB. NEB SCH ×4 (07:23→20:10)
[2021-03-21 08:16] LABS: BASO % 0.8 % (0-2.0); EOS % 30.9 % (0-4.5); HEMATOCRIT 35.5 % (32.4-45.2); HEMOGLOBIN 11.4 GM/dL (10.7-15.3); LYMPH % 3.8 % (8-40); MCH 26.2 pg (25.7-33.7); MCHC 32.1 g/dl (32.0-36.0); MEAN CELL VOLUME 81.8 fl (80-96); MEAN PLT VOLUME 7.7 fl (7.5-11.1); MONO % 5.3 % (3.8-10.2); NEUT % 59.2 % (42.8-82.8); PLATELET COUNT 419 10^3/uL (134-434); RBC 4.34 M/mm3 (3.60-5.2); RDW 18.7 % (11.6-15.6)
[2021-03-21 08:17] LABS: WHITE BLOOD COUNT 38.1 K/mm3 (4.0-10.0)
[2021-03-21] MEDS: ASPIRIN 81 MG CHEWABLE TABLETS PO SCH (09:32)
[2021-03-21] MEDS: MULTIVITAMINS THER W-MINERALS COMBO TABLET (FP) PO SCH (09:32)
[2021-03-21] MEDS: PANTOPRAZOLE 40 MG TABLET PO SCH (09:32)
[2021-03-21] MEDS: metoPROLOL SUCCINATE 25 MG TAB.SR.24H (FP) PO SCH (09:32)
[2021-03-21] MEDS: POLYETHYLENE GLYCOL (HEALTHYLAX) 3350 17 GM PACKET PO SCH (09:32)
[2021-03-21] MEDS: VALSARTAN 80 MG TABLET PO SCH (09:32)
[2021-03-21] MEDS: FLUTICASONE/SALMETEROL 100 MCG/50 MCG DISKUS IH SCH (09:33)
[2021-03-21] MEDS: ENOXAPARIN NA (PORCINE) 40 MG/0.4 ML DISP.SYRIN SQ SCH (09:33)
[2021-03-21] MEDS: rOPINIRole HCL 0.5 MG TABLET PO SCH ×3 (09:35→17:04)
[2021-03-21 09:52] LABS: BLOOD UREA NITROGEN 9.1 mg/dL (7-18); CALCIUM 10.1 mg/dL (8.5-10.1); CREATININE 0.4 mg/dL (0.55-1.3)
[2021-03-21 10:49] LABS: ANISOCYTOSIS 1+; MACROCYTOSIS 0; OVALOCYTE 1+; PLATELET ESTIMATE NORMAL; TEAR DROP CELLS 1+
[2021-03-21] MEDS ORDERED: AMINO ACIDS/PROTEIN HYDROLYS 30 ML LIQUID.PKT PO SCH (11:00)
[2021-03-21 17:08] VITALS: BP 122/53; PULSE 87; TEMP 98.8
== END 2021-03-21 21:00 | disposition hospice, inpatient (51) | DRG 180 ==
LOC: JER 20:40 → JERBED 03-16 04:06 → J7W 03-16 09:56
PROVIDERS: ADMIT Internal Medicine; ATTEND Internal Medicine
DX: C34.90 Malignant neoplasm of unspecified part of unspecified bronchus or lung (principal); L89.153 Pressure ulcer of sacral region, stage 3; C79.9 Secondary malignant neoplasm of unspecified site; J90 Pleural effusion, not elsewhere classified; N39.0 Urinary tract infection, site not specified; I10 Essential (primary) hypertension; E78.5 Hyperlipidemia, unspecified; E11.9 Type 2 diabetes mellitus without complications; D64.9 Anemia, unspecified; E83.52 Hypercalcemia; J45.909 Unspecified asthma, uncomplicated; J44.9 Chronic obstructive pulmonary disease, unspecified; E03.9 Hypothyroidism, unspecified; M54.16 Radiculopathy, lumbar region; G20 Parkinson's disease; G30.9 Alzheimer's disease, unspecified; D72.829 Elevated white blood cell count, unspecified; K57.90 Diverticulosis of intestine, part unspecified, without perforation or abscess without bleeding; E86.0 Dehydration; K21.9 Gastro-esophageal reflux disease without esophagitis; K43.2 Incisional hernia without obstruction or gangrene; Z85.3 Personal history of malignant neoplasm of breast
CPT/HCPCS: 36415; 71045-TC-FY; 71250-TC; 80048; 80053; 81003; 82962; 83605; 84443; 85025; 85610; 85730; 87040; 87086; 93005; 93010; 94640; 99285-25; C9803; J0131; U0003; U0005